=== PATIENT | male | born 1960 | race Caucasian/White ===

== ENCOUNTER 2017-11-15 09:22 | Emergency (ER) | payer SELFPAY ==
[~2017-11-15] VITALS: Ht 180.3 cm; Wt 86.2 kg
[~2017-11-15 09:22] MED LIST: AMITRIPTYLINE H25 MG PO; CEPHALEXIN500 MG PO; CLINDAMYCIN HC150 MG PO; Cefuroxime Axetil PO; FUROSEMIDE20 MG PO; Hydrochlorothiazide PO; LISINOPRIL-HCT1 EAC1 PO; OXYCODONE HCL20 M1 PO; PEPCID20 MG PO; PROMETHAZINE HC25 M1 PO; ROBAXIN-750750 MG PO; TIZANIDINE; TIZANIDINE HCL4 M1 PO; TYLENOL WITH C1 EACH PO; ULTRAM 50MG50 MG PO; VITAMIN C1000 M1 PO
--- OUTSIDE RECORDS SUMMARY | 2017-11-15 09:25 | XMS REPORT ---
Author Author [facility] Address Unknown Phone Unavailable Care Team Providers Care [employer] Name Role Phone Unavailable Unavailable Problems This patient has no known problems. Allergies, Adverse Reactions, Alerts This patient has no known allergies or adverse reactions. Medications This patient has no known medications. Encounters Start Date/Time End Date/Time Encounter Type Admission Type Attending [facility] Care Department Encounter ID 2017-09-29 00:00:00 2017-09-29 00:00:00 Outpatient [facility] [id number] 2017-04-29 00:00:00 2017-04-29 00:00:00 Outpatient [facility] [id number] 2017-04-29 00:00:00 2017-04-29 00:00:00 Outpatient [facility] [id number] 2017-04-20 00:00:00 2017-04-20 00:00:00 Outpatient [facility] [id number] 2017-02-16 00:00:00 2017-02-16 00:00:00 Outpatient [facility] [id number] 2017-02-14 00:00:00 2017-02-14 00:00:00 Outpatient [facility] [id number] 2017-02-09 00:00:00 2017-02-09 00:00:00 Outpatient [facility] [id number] 2017-02-03 15:57:31 2017-02-03 15:57:31 Outpatient [facility] [id number] 2017-01-31 10:25:32 2017-01-31 10:25:32 Outpatient [facility] [id number] 2017-01-31 09:00:32 2017-01-31 09:00:32 Outpatient [facility] [id number]
--- NOTE | 2017-11-15 10:43 | Diagnostic Imaging Report ---
PROCEDURE:X-RAY LEFT LOWER LEG COMPARISON:[facility], DX, LOWER LEG LEFT, 08/08/2016, 2:54. INDICATIONS:INFECTION OF LOWER LEG, OLD WOUND, OPEN WOUND ANTERIOR LEG FINDINGS: Old distal tibial and fibular fracture. Orthopedic hardware appears intact. There are no acute fractures, dislocations, lytic or blastic lesions. The bones are demineralized. There are no signs of osteomyelitis. The soft-tissues are unremarkable. CONCLUSION: 1. No acute bony abnormality or interval change. 2. No radiographic signs to suggest osteomyelitis. Darwin Coello D.O. Dictated by: Darwin Coello D.O. on 11/15/2017 at 10:43 Electronically approved by: Darwin Coello D.O. on 11/15/2017 at 10:43
[2017-11-15 11:00] LABS: BASOPHILS % 0.4 % (0.0-1.0); EOSINOPHILS # (AUTO) 0.1 (0.0-0.4); EOSINOPHILS % 1.3 % (0.0-6.0); HEMATOCRIT 39.1 % (38.2-49.6); HEMOGLOBIN 13.5 g/dL (14.0-18.0); LYMPHOCYTES # (AUTO) 1.1 (1.0-3.2); LYMPHOCYTES % 12.9 % (18.0-39.1); MEAN CORPUSCULAR HEMOGLOBIN 29.2 pg (28-32); MEAN CORPUSCULAR HGB CONC 34.5 g/dL (31-35); MEAN CORPUSCULAR VOLUME 84.6 fL (81-99); MONOCYTES # (AUTO) 0.7 (0.2-0.8); MONOCYTES % 8.6 % (4.4-11.3); NEUTROPHILS # (AUTO) 6.3 (2.1-6.9); NEUTROPHILS % 76.4 % (38.7-80.0); PLATELET COUNT 212 x10e3/uL (140-360); RED BLOOD COUNT 4.62 x10e6/uL (4.3-5.7); RED CELL DISTRIBUTION WIDTH 13.5 % (11.7-14.4)
[2017-11-15 11:13] LABS: INR 1.17
[2017-11-15 11:14] LABS: PARTIAL THROMBOPLASTIN TIME 33.1 seconds (23.8-35.5)
[2017-11-15 11:22] LABS: ALANINE AMINOTRANSFERASE 31 IU/L (0-55); ALBUMIN 3.4 g/dL (3.5-5.0); ALBUMIN/GLOBULIN RATIO 0.9 (0.8-2.0); ALKALINE PHOSPHATASE 124 IU/L (40-150); ANION GAP 14.1 mmol/L (8-16); BLOOD UREA NITROGEN 11 mg/dL (7-26); BUN/CREATININE RATIO 14 (6-25); CALCIUM 8.9 mg/dL (8.4-10.2); CARBON DIOXIDE 22 mmol/L (22-29); CHLORIDE 102 mmol/L (98-107); CREATININE, SERUM 0.77 mg/dL (0.72-1.25); EST GLOMERULAR FILTRATION RATE > 60 ML/MIN (60-); GLUCOSE 101 mg/dL (74-118); POTASSIUM 4.1 mmol/L (3.5-5.1); SODIUM 134 mmol/L (136-145)
[2017-11-15] MEDS ORDERED: KETOROLAC TROMETHAMINE 30 MG/ML VIAL IV STA (11:25)
== END 2017-11-15 13:11 | disposition home or self-care (01) ==
LOC: ER 09:22
DX: M79.662 Pain in left lower leg (principal); L03.116 Cellulitis of left lower limb; I10 Essential (primary) hypertension; I73.9 Peripheral vascular disease, unspecified; M54.9 Dorsalgia, unspecified; G89.29 Other chronic pain; Z86.718 Personal history of other venous thrombosis and embolism
CPT/HCPCS: 36415; 73590; 80053; 85025; 85610; 85730; 87071; 87186; 87205; 99284; J1885